=== PATIENT | male | born 1985 ===

== ENCOUNTER 2021-04-23 08:07 | Emergency (ER) | payer OTHER ==
[~2021-04-23] VITALS: Ht 175.3 cm; Wt 74.8 kg
[2021-04-24] MEDS ORDERED: CEPH500 PO (19:37)
== END 2021-04-23 10:45 | disposition home or self-care (01) ==
LOC: ER 08:07
DX: S67.190A Crushing injury of right index finger, initial encounter (principal); X58.XXXA Exposure to other specified factors, initial encounter
CPT/HCPCS: 10140; 73140; 99283-25

== ENCOUNTER 2021-04-24 19:11 | Emergency (ER) | payer OTHER ==
[~2021-04-24] VITALS: Ht 175.3 cm; Wt 76.2 kg
[2021-04-24] MEDS ORDERED: CEPH500 PO (19:37)
== END 2021-04-24 19:42 | disposition home or self-care (01) ==
LOC: ER 19:11
DX: L08.9 Local infection of the skin and subcutaneous tissue, unspecified (principal)
CPT/HCPCS: 99282; A9270